=== PATIENT | female | born 1945 | race Caucasian/White ===

== ENCOUNTER → 2017-06-03 12:53 | Outpatient (CLI) | payer MEDICARE | END | disposition home or self-care (01) | LOC: D.MAMMO 06-02 10:00 | DX: Z12.31 Encounter for screening mammogram for malignant neoplasm of breast (principal) ==

== ENCOUNTER → 2018-06-07 18:53 | Outpatient (CLI) | payer MEDICARE | END | disposition home or self-care (01) | LOC: D.MAMMO 15:00 | DX: Z12.31 Encounter for screening mammogram for malignant neoplasm of breast (principal) ==

== ENCOUNTER 2018-06-22 05:09 | Day surgery (SDC) | payer MEDICARE ==
[~2018-06-22] VITALS: Ht 165.1 cm; Wt 61.2 kg
--- NOTE | ~2018-06-22 | OP ---
PATIENT NAME: Lou SEXTON T MEDICAL RECORD: [id number] :41 LOCATION:D[facility] ADMISSION DATE: SURGEON: LC FUENTES MD DATE OF OPERATION: 06/22/2018 SURGEON: Lc Fuentes MD ANESTHESIA: TIVA by Martina Vazquez CRNA. DIAGNOSIS: Urge urinary incontinence, not responsive to oral medications. PROCEDURE: Cystoscopy and intravesical Botox injection 100 units. FINDINGS: Single ureteral orifices, diffusely inflamed bladder with glomerulations. No bladder tumors. ESTIMATED BLOOD LOSS: None. CLINICAL HISTORY: This is a 72-year-old female, who has a chief complaint of urge urinary incontinence. She had been seeing Dr. Kirkland for this. He tried oxybutynin, VESIcare, and another medication. She cannot afford these medications and they do not seem to be very effective. She has significant side effects from them. She wishes to have a trial of intravesical Botox. SHE IS ALLERGIC TO VICODIN. She was given An[employer] scrap iron cutter to the OR. DESCRIPTION OF PROCEDURE: The patient was given IV sedation. She was placed in dorsal lithotomy position and prepped and draped. A 21-Dutch cystoscope with 30-degree lens was used for visualization. She has diffuse bladder inflammation, which makes me think that she may have an underlying degree of interstitial cystitis. Nevertheless, we diluted 100 units of Botox into 10 mL of injectable saline. Thus every mL had 10 units of Botox dissolved in it. At 10 different locations, sparing the ureteral orifices on the trigone, we injected 1 mL of Botox. Once the procedure was done, the bladder was emptied through the cystoscope sheath. I will see the patient in followup in 2 weeks' time. TRANSINT:[id number] Voice Confirmation ID: [id number] DOCUMENT ID: [id number] LC FUENTES MD at [id number] CC: [id number] DICTATION DATE: 06/22/18804 TERRITORY ACCOUNT REPRESENTATIVE: 06/22/18813 [facility] [address] [id number]
[~2018-06-22 05:09] MED LIST: BAYER CHEWABLE81 MG PO; ESTRACE 0.0142.5 GM; LEVO-T100 MCG PO; PRAVACHOL40 MG PO; PROPRANOLOL HCL60 M1 PO; VESICARE5 MG PO
[2018-06-22 05:25] LABS: HEMATOCRIT 34.2 % (36.0-48.0); HEMOGLOBIN 11.3 g/dL (12-16); MCV 90.7 fL (80.0-100.0); MEAN PLATELET VOLUME 11.3 fL (7.4-10.4); RBC 3.77 10x6/uL (4.00-5.40); RDW 13.2 % (11.5-14.5); WBC 5.3 10x3/uL (4.8-10.8)
[2018-06-22 06:30] VITALS: BP 138/70; Ht 165.1 cm; Wt 61.2 kg
== END 2018-06-22 09:22 | disposition home or self-care (01) ==
LOC: D.OPS 05:09 → D.PAN 07:30 → D.OPS 07:30
PROVIDERS: Anesthesiology
DX: N39.41 Urge incontinence (principal); Z01.812 Encounter for preprocedural laboratory examination

== ENCOUNTER → 2019-01-26 20:34 | Outpatient (CLI) | payer MEDICARE ==
[2018-06-22 06:30] VITALS: BMI 22.5
== END | disposition home or self-care (01) ==
LOC: D.LABREF 20:34
PROVIDERS: ATTEND Urology
DX: R82.5 Elevated urine levels of drugs, medicaments and biological substances (principal); D72.829 Elevated white blood cell count, unspecified

== ENCOUNTER → 2019-03-04 17:43 | Outpatient (CLI) | payer MEDICARE ==
[2018-06-22 06:30] VITALS: BMI 22.5
== END | disposition home or self-care (01) ==
LOC: D.LABREF 17:43
PROVIDERS: ATTEND Urology
DX: N39.0 Urinary tract infection, site not specified (principal)

== ENCOUNTER → 2019-06-20 14:52 | Outpatient (CLI) | payer MEDICARE ==
[2018-06-22 06:30] VITALS: BMI 22.5
== END | disposition home or self-care (01) ==
LOC: D.CT 14:52
PROVIDERS: ATTEND Urology
DX: R10.9 Unspecified abdominal pain (principal); Z03.89 Encounter for observation for other suspected diseases and conditions ruled out

== ENCOUNTER 2019-06-29 09:00 | Outpatient (CLI) | payer MEDICARE ==
[2018-06-22 06:30] VITALS: BMI 22.5
== END 2019-06-29 10:00 | disposition home or self-care (01) ==
LOC: D.MAMMO 09:00
PROVIDERS: ATTEND Family Medicine
DX: Z12.31 Encounter for screening mammogram for malignant neoplasm of breast (principal)

== ENCOUNTER → 2019-08-23 09:38 | Outpatient (CLI) | payer MEDICARE ==
[2018-06-22 06:30] VITALS: BMI 22.5
== END | disposition home or self-care (01) ==
LOC: D.MRI 09:38
PROVIDERS: ATTEND Nurse Practitioner Family
DX: M47.896 Other spondylosis, lumbar region (principal)